=== PATIENT | female | born 1970 | race Native Hawaiian/Other Pacific Islander ===

== ENCOUNTER 2020-12-10 07:29 | Observation (INO) ==
--- NOTE | 2020-11-15 14:32 | PAT Medication Instructions ---
Medication Instructions Date of Service November 15, 2020 Home Medications citalopram 10 mg tablet 10 mg PO QAM phentermine 37.5 mg capsule 37.5 mg PO QAM tramadol 50 mg tablet 50 mg PO Q6H PRN aspirin 81 mg tablet 81 mg PO QAM Take morning of surgery With a small sip of water, OTHERWISE NOTHING TO EAT OR DRINK AFTER MIDNIGHT: citalopram 10 mg tablet 10 mg PO QAM tramadol 50 mg tablet 50 mg PO Q6H PRN (okay to take up to 4 hours prior to surgery if needed) aspirin 81 mg tablet 81 mg PO QAM (continue as normal unless told otherwise by surgeon) Other Notes STOP 5 DAYS BEFORE SURGERY: phentermine 37.5 mg capsule 37.5 mg PO QAM If you have any questions please call us at [phone] or [phone] or or [phone]
--- NOTE | 2020-11-20 13:20 | Anesthesiology Consultation ---
Date of Service November 20, 2020 Assessment & Plan (1) Encounter for pre-operative examination: - COVID screening: Per assessment on 11/20: Travel screen negative, no known COVID-19 positive contacts or current COVID-19 related symptoms. Patient vaccin ated. Surgeon arranging preop COVID testing. Awaiting results. - ASA instructions: per surgeon/prescriber - Check test AM DOS - Hx spinal headache: after remote c/s SAB Chart Review Chart Review: Acceptable Risk for Surgery and Patient seen in Pre Admission Testing Teaching & Discussion Pre-Anesthesia Teaching/Discussion Notes: Instructed NPO after midnight before surgery,except medications with 15 cc of water. Medication instructions provided according to the PAT guidelines. History Surgery Operation Date: 12/10/20 10:40 Proposed Procedures p Right Total Knee Arthroplasty - Ezequiel Alcala DO Height/Weight Height: 5 ft 4 in Weight: 116 kg Allergies Allergy/AdvReac Type Severity Reaction Status Date / Time No Known Allergies Allergy Verified 11/12/20 07:22 Medications Home Medications Medication Instructions Recorded Confirmed Last Taken citalopram 10 mg tablet 10 mg PO QAM 11/02/20 11/09/20 Unknown phentermine 37.5 mg capsule 37.5 mg PO QAM 11/02/20 11/09/20 Unknown tramadol 50 mg tablet 50 mg PO Q6H PRN tab 11/02/20 11/09/20 Unknown aspirin 81 mg tablet 81 mg PO QAM 11/09/20 11/09/20 Unknown Past Medical History Medical History Degenerative disc disease Factor V deficiency Dx after work done stillborn child (2003)- umbilical cord at time showed abnormalities which led to testing/diagnosis > started on ASA daily History of anemia No hx blood transfusions History of COVID-19 Dx 06/2020 > no residual issues History of kidney stones Hx of sleep apnea Remote 15+ years ago dx prior to gastric bypass, snoring resolved since No formal retest Morbid obesity Osteoarthritis Exercise / Class Metabolic Activity III < 4 Walking/Shop/Light housework Past Family History Family History Grandmother (Maternal) Family history of diabetes mellitus Grandfather (Paternal) Family hx of colon cancer Past Surgical History Surgical History History of section x3 History of cholecystectomy History of colonoscopy History of endometrial ablation History of herniorrhaphy x3 History of lithotripsy History of tooth extraction Hx of gastric bypass Past Anesthesia History Other (Hx spinal headache- after remote c/s SAB) Father- O2 sats dropped with hip surgery. No similar issues for patient. History of PONV No Hx of PONV and No Hx of Motion Sickness Social History Smoking Status: Never smoker Do You Dip or Chew Tobacco: No Hx Alcohol Use: No substance use type: does not use Review of Systems Patient denies chest pain, shortness of breath, fever, chills, cough, wheezing, palpitations. Physical Exam Vital Signs VITALS BP 121/87 P 85 TEMP 98.5 SP02 97%RA RESP 16 PHYSICAL Full cervical extension range of motion. Full TMJ range of motion. TMD 4 finger breaths Mallampati Score 1 Dentition: several missing (molars), + crown (molar) Lungs: clear throughout to auscultation Cardiac: regular rate and rhythm, no murmurs noted Spine: normal Carotid arteries: negative bruit Extremities: non-pitting LE edema Thick neck Lab Results Anesthesia Preop Results Results Anesthesia Widget: WBC 4.48 K/uL (4.8-10.8) L 11/20/20 Hgb 13.0 g/dL (12.0-16.0) 11/20/20 Hct 38.4 % (37-47) 11/20/20 Plt 256 K/uL (130-400) 11/20/20 Na 141 mmol/L (136-145) 11/20/20 K 3.6 mmol/L (3.5-5.1) 11/20/20 Cl 109 mmol/L (98-107) H 11/20/20 CO2 25 mmol/L (21-32) 11/20/20 BUN 14 mg/dl (7-18) 11/20/20 Creat 0.43 mg/dl (0.6-1.2) L 11/20/20 Glucose Level 88 mg/dl (70-99) 11/20/20 PT 10.9 Seconds (9.0-12.0) 11/20/20 PTT 25.1 Seconds (21.0-31.0) 11/20/20 INR 1.1 (0.9-1.1) 11/20/20 Blood Type O Positive 11/20/20 Antibody Screen NEGATIVE 11/20/20 Testing Electrocardiogram Date: 11/20/20 NSR at 79bpm. Normal ECG. unconfirmed report. Chest X-Ray Date: 11/20/20 Findings: + NAD
--- NOTE | 2020-12-07 06:02 | History & Physical Report ---
Date of Service December 07, 2020 Assessment & Plan (1) Primary osteoarthritis of right knee: We will proceed with a right total knee arthroplasty. Postoperatively she will be started on Xarelto for DVT prophylaxis. She will be kept overnight in the hospital for postoperative medical management. She plans to use [employer] upon discharge. History of Present Illness Chief Complaint: Osteoarthritis of the right knee. Primary Care Provider: Ellis Kiser PA-C Nesha is a pleasant 50-year-old female whose been dealing with a several year history of worsening bilateral knee pain. Her right knee is worse than her left. She has trouble walking long distances or going up and down stairs. She has failed extensive conservative treatment including multiple injections and viscosupplementation. X-rays show advanced osteoarthritis. After failing conservative treatment, she has elected to proceed with a right total knee arthroplasty.. Allergies Allergy/AdvReac Type Severity Reaction Status Date / Time No Known Allergies Allergy Verified 11/12/20 07:22 Home Medications Medication Instructions Recorded Confirmed Type citalopram 10 mg tablet 10 mg PO QAM 11/02/20 11/09/20 History phentermine 37.5 mg capsule 37.5 mg PO QAM 11/02/20 11/09/20 History tramadol 50 mg tablet 50 mg PO Q6H PRN tab 11/02/20 11/09/20 History aspirin 81 mg tablet 81 mg PO QAM 11/09/20 11/09/20 History Past Med/Surg History Medical History Degenerative disc disease Factor V deficiency Dx after work done stillborn child (2003)- umbilical cord at time showed abnormalities which led to testing/diagnosis > started on ASA daily History of anemia No hx blood transfusions History of COVID-19 Dx 06/2020 > no residual issues History of kidney stones Hx of sleep apnea Remote 15+ years ago dx prior to gastric bypass, snoring resolved since No formal retest Morbid obesity Osteoarthritis Surgical History History of section x3 History of cholecystectomy History of colonoscopy History of endometrial ablation History of herniorrhaphy x3 History of lithotripsy History of tooth extraction Hx of gastric bypass Family History Grandmother (Maternal) Family history of diabetes mellitus Grandfather (Paternal) Family hx of colon cancer Social History Smoking Status: Never smoker Second Hand Exposure: No; Hx Alcohol Use: No Preferred Language: Luxembour[place] Game Author Required: No Beliefs That Will Affect Care: None Current Living Situation: Family Feels Safe at Home: Yes Assistive Devices: None Review of Systems All systems reviewed & are unremarkable except as noted in HPI & below. Physical Exam On physical examination of the right knee, she does a varus deformity. She has tenderness palpation of the distal medial femoral condyle and over the medial joint line.. Constitutional WD/WN, vitals as above Eyes PERRL, conjunctivae normal, anicteric sclerae ENMT external ear and nose normal, oropharynx normal Neck trachea midline, no thyromegaly Respiratory normal respiratory effort Cardiovascular RRR, no murmur, no edema Gastrointestinal (Abdomen) normal bowel sounds, soft, nontender, no hepatosplenomegaly Psychiatric A+Ox3, euthymic affect Results & Data Results & Data Laboratory Results . Diagnostic Findings X-rays of the right knee show advanced osteoarthritis with joint space narrowing, osteophyte formation, and [id number] articulation. PG Care Time/CCT Total # of Minutes Spent Total Time Spent with Patient: Total time spent is greater than 50% in coordination of care (as documented) at patient's floor/unit and/or counseling patient: Coding Level of Care Code None Diagnoses Primary osteoarthritis of right knee M17.11
[~2020-12-10 07:29] MED LIST: ACETAMINOPHEN 500 MG TAB PO SCH; BUPIVACAINE 0.5 % 5 MG/1 ML PF 10ML VIAL ONE; FAMOTIDINE 20 MG TAB PO SCH; GABAPENTIN 900 MG DOSE PO SCH; LR 500ML BOLUS, THEN 15ML/HR IV SCH; LR 60ML/HR IV SCH; ROPIVACAINE 0.5% HCL/PF 150 MG, BUPIVACAINE 0.75% MPF 20 ML, EPINEPHrine 30MG/30ML (OR ... INFIL SCH; TRANEXAMIC ACID 1,000 MG **IV Intra-op IV SCH; TRANEXAMIC ACID 1,000 MG **IV Pre-op IV SCH; ceFAZolin 2000MG 2,000 MG/15 ML SYR IV SCH; dexAMETHasone 4 MG TAB PO SCH
--- NOTE | 2020-12-10 08:17 | History & Physical Bridge Note ---
Date of Service December 10, 2020 History & Physical Bridge Note I have examined the patient, reviewed the History & Physical and in the interval since the performance of the History & Physical I have noted the following changes of clinical significance: no changes noted
[2020-12-10] MEDS ORDERED: DEXAMETHASONE SOD INJ 4 MG/ML VIAL ONE (08:30)
[2020-12-10] MEDS ORDERED: ONDANSETRON INJ 2 MG/ML 2 ML VIAL ONE (08:30)
[2020-12-10] MEDS ORDERED: PROPOFOL IV EMULSION 10 MG/ML 20 ML VIAL IV ONE ×2 (08:30→12:10)
[2020-12-10] MEDS ORDERED: fentaNYL citrate 100 MCG/2 ML VIAL ONE ×2 (08:31→09:49)
[2020-12-10] MEDS ORDERED: MIDAZOLAM HCL 1 MG/ML 2ML VIAL ONE ×2 (09:48)
[2020-12-10] MEDS ORDERED: ATROPINE SULFATE 0.1 MG/ML 10ML SYR IV PRN (10:12)
[2020-12-10] MEDS ORDERED: ePHEDrine sulfate 50 MG/ML AMP IV PRN (10:12)
[2020-12-10] MEDS ORDERED: fentaNYL citrate 100 MCG/2 ML VIAL IV PRN (10:12)
[2020-12-10] MEDS ORDERED: ONDANSETRON INJ 2 MG/ML 2 ML VIAL IV PRN ×2 (10:12→13:32)
[2020-12-10] MEDS ORDERED: ORTHO JOINT ANESTHETIC ONE (10:46)
[2020-12-10] MEDS ORDERED: LIDOCAINE 2% 2 ML VIAL/AMP(20MG/ML) INFIL ONE (12:10)
--- NOTE | 2020-12-10 12:16 | Operative Report ---
PG Post Operative Report Pre & Post Diagnosis Operation Date: 12/10/20 10:00 Pre-Op Diagnosis: Primary osteoarthritis of right knee Post-Op Diagnosis: Primary osteoarthritis of right knee I identified the patient and participated in the time-out.: Yes Procedure Operation Date: 12/10/20 10:00 Actual Procedures p Right Total Knee Arthroplasty(Right) with a 22 modifier for increased difficulty due to a BMI of 43.0- Ezequiel Alcala DO Surgeon Ezequiel Alcala DO [employer] Supervisor Ezequiel Angulo PAC Estimated Blood Loss 10 Findings Consistent with Post-Op Diagnosis Specimens Right femoral and tibial bone Complications none Disposition Disposition: Recovery Room Indications Nesha is a pleasant 50-year-old female who is been dealing with chronic worsening right knee pain. X-rays clinical examination have been diagnostic for advanced osteoarthritis of the right knee. After failing conservative treatment, she elected proceed with a right total knee arthroplasty. Description of Procedure Modifier 22: This case took increased time was increased difficulty due to morbid obesity. She had a BMI of 43.0. This caused increased time for retraction and dissection as well as increased time with closure. The case took about 50% longer than a standard knee replacement. Implants used: I used a Flavio Persona total knee arthroplasty system with a size 9 narrow femur, E tibia, 32 patella, and a size 11 medial congruent polyethylene bearing. All components were cemented in place with Biomet cement. Nesha arrived [facility] for the above procedure. She was seen in the preoperative holding area and the operative extremity was identified and signed. She was given a preoperative antibiotic, TXA, a spinal anesthetic and an adductor nerve block. She was taken back to the operating room and laid on the table in supine position. She was given basic sedation. The operative knee was then prepped and draped in sterile fashion. A timeout was done, and the patient and the operative extremity was properly identified. A midline incision was made directly over the patella. Dissection was taken down to the extensor mechanism. A subvastus arthrotomy was used. The medial retinaculum was released and the fat pad was mostly excised. The knee was flexed and the ACL, PCL, and meniscus were removed. A drill was sent down the center of the femoral canal followed by an intramedullary lara. Off that lara a distal femoral cutting block was placed. 9 mm was resected off the distal femur at 5 of valgus. A posterior referencing AP sizing guide was then placed on the distal femur. The femur measured to be a size 9 narrow. 2 drill holes were placed in 3 of external rotation. A 4-in-1 cutting block was then impacted into place. Anterior, posterior, and chamfer cuts were then made. The proximal tibia was then exposed. An external tibial alignment guide was placed. A tibial cut guide was then anchored in place and the proximal tibia was then resected. The posterior aspect of the knee was then opened up and any additional meniscus fragments and osteophytes were removed. The tibia measured to be a size E. The tibial plate was then placed in the appropriate rotation and the tibia was drilled and punched. Trial components were then placed. I used a size 11 medial congruent polyethylene insert. The knee was brought through a full range of motion and felt to be stable. The peg holes for the femoral component were then drilled. The patella was then everted and 9 mm was resected off the posterior aspect of the patella. The patella measured to be a size 32. 3 peg holes were then drilled. A trial patella was placed. The knee was once again brought through a full range of motion and felt to be stable. Trial components were then removed. The surrounding soft tissues were injected with 100 cc of an orthopedic pain control cocktail. All components were then cemented into place with Biomet cement. The final polyethylene insert was then snapped into place. Once cement was dry the tourniquet was deflated. Hemostasis was obtained. A dilute betadyne lavage was then done for 3 minutes. The joint was then irrigated with normal saline solution. The subvastus arthrotomy was then closed with #1 Vicryl suture. The skin was closed with 2-0 Vicryl, 3-0V lock suture, and elisabeth. A soft compressive dressing was placed. She was then transferred to a hospital bed and taken to the postanesthesia care unit in stable condition. She tolerated the procedure well. Ezequiel Angulo PA-C, was present for the entire procedure. He was critical for patient positioning, prepping, draping, retraction exposure, wound closure and application of sterile dressing. I attest to the content of the Intraoperative Record and any orders documented therein. Any exceptions are noted below.
[2020-12-10] MEDS ORDERED: PHENYLEPHRINE 100MCG/ML 5ML SYR ONE (12:21)
--- NOTE | 2020-12-10 13:31 | XRay Report ---
XR knee RT 1 or 2V routine HISTORY: 50 years-old Female Surgical Post Op right knee total joint arthroplasty COMPARISON: Knee radiographs 11/02/2020 TECHNIQUE: 2 views of the right knee FINDINGS: Right knee total joint arthroplasty with patellar resurfacing. Anterior midline skin elisabeth are note d along with expected postoperative soft tissue swelling and deep tissue air. No acute fracture, kellee lignment, or unexpected opaque foreign body. IMPRESSION: Right knee total joint arthroplasty and patella resurfacing with expected postoperative c hanges. ACT 112: Negative or not required by law. The above report was generated using voice recognition software. It may contain grammatical, syntax o r spelling errors. Electronically signed by: Abhay Swenson M.D. 12/10/2020 1:30 PM
[2020-12-10] MEDS ORDERED: bisacodyL 10 MG SUPP PR PRN (13:32)
[2020-12-10] MEDS ORDERED: METOCLOPRAMIDE HCL INJ 5 MG/ML 2 ML VIAL IV PRN (13:32)
[2020-12-10] MEDS ORDERED: HYDROmorphone INJ 0.5 MG/0.5 ML SYR IV PRN (13:32)
[2020-12-10] MEDS ORDERED: MAGNESIUM HYDROXIDE SUSP 30 ML UDC PO PRN (13:32)
[2020-12-10] MEDS ORDERED: NALOXONE HCL 0.4 MG/1 ML VIAL/CARP IV PRN (13:32)
--- NOTE | 2020-12-10 13:43 | Anesthesiology Progress Note ---
Date of Service December 10, 2020 Anesthesia Post Procedure Vital Signs Vital Signs: Temp Pulse Pulse Resp BP Pulse Ox 12/10/20 13:10 97.7 F 81 13 124/74 97 12/10/20 13:00 75 20 122/76 100 12/10/20 12:50 75 12 133/68 100 12/10/20 12:40 98.8 F 85 16 128/70 99 12/10/20 08:06 99.5 F 78 20 152/79 H 99 Pain Intensity Back: Pain Intensity: 4 Transfer of Care Handoff Completed per policy Notes Mental Status: alert / awake / arousable and participated in evaluation Patient Amnestic to Procedure: Yes Nausea / Vomiting: adequately controlled Pain: adequately controlled Airway Patency, RR, SpO2: stable & adequate BP & HR: stable & adequate Hydration State: stable & adequate Neuraxial Anesthesia: was administered and sensory block is resolving Anesthetic Complications: no major complications apparent and Pt Satisfied with anesthetic care
[2020-12-10] MEDS: SODIUM CHLORIDE 0.9% 1000ML 1,000 ML IV SCH (13:45)
[2020-12-10] MEDS: ACETAMINOPHEN 500 MG TAB PO SCH ×2 (15:35→20:56)
[2020-12-10] MEDS: KETOROLAC 30 MG/ML VIAL IV SCH ×2 (15:35→20:55)
[2020-12-10] MEDS: oxyCODONE HCL IR 5 MG TAB (IMMEDIATE RELEASE) PO PRN (16:59)
[2020-12-10] MEDS: ceFAZolin 2000MG 2,000 MG/15 ML SYR IV SCH (18:43)
[2020-12-10] MEDS: DOCUSATE SODIUM 100 MG CAP PO SCH (20:55)
[2020-12-10] MEDS ORDERED: SENNA 8.6 MG TAB PO SCH (21:00)
[2020-12-11] MEDS: oxyCODONE HCL IR 5 MG TAB (IMMEDIATE RELEASE) PO PRN ×3 (00:15→10:53)
[2020-12-11] MEDS: SODIUM CHLORIDE 0.9% 1000ML 1,000 ML IV SCH (01:07)
[2020-12-11] MEDS: KETOROLAC 30 MG/ML VIAL IV SCH ×2 (02:29→09:02)
[2020-12-11] MEDS: ceFAZolin 2000MG 2,000 MG/15 ML SYR IV SCH (02:29)
[2020-12-11] MEDS: ACETAMINOPHEN 500 MG TAB PO SCH (06:02)
--- NOTE | 2020-12-11 06:41 | Orthopedic Progress Note ---
Date of Service December 11, 2020 Assessment & Plan (1) Status post right knee replacement: Overall she is doing very well. She is not having much pain in the right knee. She is on Xarelto for DVT prophylaxis. She will be seen by physical therapy today for ambulation and range of motion exercises. Her dressing can be changed after physical therapy but before discharge. She can be discharged home later today. She will follow-up with orthopedics in 2 weeks. Ana Jeffries was seen and examined at bedside this morning. Overall she doing very well. She is not having much pain in the right knee. She has been up and ambulating to the bathroom. She has no complaints.. Review of Systems All systems reviewed & are unremarkable except as noted in HPI & below. Physical Exam On physical examination the right knee, the dressing is clean and dry. She has active dorsiflexion and plantarflexion of her right ankle. Sensation is intact throughout.. Results & Data Results & Data Laboratory Results . Diagnostic Findings Postoperative x-rays of the right knee show the prosthesis to be in anatomic alignment without any evidence of fracture, dislocation, or loosening. PG Care Time/CCT Total # of Minutes Spent Total Time Spent with Patient: Total time spent is greater than 50% in coordination of care (as documented) at patient's floor/unit and/or counseling patient: Coding Level of Care Code 33506 Post Operative Follow-Up Diagnoses Status post right knee replacement Z96.651
--- NOTE | 2020-12-11 06:42 | Discharge Summary ---
Date of Service December 11, 2020 Admission HPI (Per Admitting) Nesha is a pleasant 50-year-old female whose been dealing with a several year history of worsening bilateral knee pain. Her right knee is worse than her left. She has trouble walking long distances or going up and down stairs. She has failed extensive conservative treatment including multiple injections and viscosupplementation. X-rays show advanced osteoarthritis. After failing conservative treatment, she has elected to proceed with a right total knee arthroplasty.. Admission Exam (Per Admitting) On physical examination of the right knee, she does a varus deformity. She has tenderness palpation of the distal medial femoral condyle and over the medial joint line.. Principal Diagnosis Same as "Discharge Diagnosis" noted below under Discharge Instructions. Discharge Exam On physical examination the right knee, the dressing is clean and dry. She has active dorsiflexion and plantarflexion of her right ankle. Sensation is intact throughout.. Discharge Data Procedures Performed Operation Date: 12/10/20 10:00 Actual Procedures p Right Total Knee Arthroplasty(Right) - Ezequiel Alcala DO Ordered Studies 12/10/20 05:00 US - OR guided needle placemen Routine Hospital Course (1) Status post right knee replacement: On December 10, 2020 Nesha arrived at [facility] and underwent a right knee replacement without complication. She had a spinal anesthetic. Postoperatively she was started on Xarelto for DVT prophylaxis and transferred to the general orthopedic floors. Her hospital course was uneventful. On postop day #1 her vital signs were stable and her pain was well controlled. She was able to participate well with physical therapy doing ambulation and range of motion exercises. She was then discharged home. She will follow-up with orthopedics in 2 weeks. PG Care Time/CCT Total # of Minutes Spent Total Time Spent with Patient: Total time spent is greater than 50% in coordination of care (as documented) at patient's floor/unit and/or counseling patient: Discharge Plan Discharge Items Patient Disposition: Home - Home Health Services Reason For Visit: DJD Right Knee Discharge Diagnosis: Right knee replacement Activity: As commented below Non-emergency contact: Surgeon Call non-emergency contact if: your wound has increased redness and your wound has increased drainage Follow-up/Referrals: Ellis Kiser PA-C [Primary Care Provider] - Diet: Regular Addtl Attending Provider Instructions: Activity and Therapy Recommendations: * If you are using [facility] then therapy will be provided at your home until they feel you have accomplished all of your goals. * If you are using [facility] then Physical Therapy will be provided until they feel you are ready to start Outpatient Physical Therapy. * If you are not using home therapy then Outpatient Physical Therapy should start about 3-5 days from your day of surgery. Therapy will last about 6-10 weeks * It is important not to put a pillow under your knee when you are relaxing or sleeping. It is just as important to make sure you are getting your knee perfectly straight as it is to regain your knee bend. * You were shown a series of exercises in the hospital. Do these exercises three times each day including the exercises you were shown in physical therapy. * Get up and walk several times each day. For the first four weeks, try not to stand or walk for more than one hour at a time. If you do stand or walk for more than one hour, you will not hurt anything, but your leg will likely swell. * As you feel comfortable, you may change from the walker or crutches to a cane and then to independent walking. Medications: * Narcotic You will likely be sent home from the hospital with a prescription for the narcotic pain medication that worked best throughout your stay. * Aspirin Most patients will be required to take Aspirin 81mg twice a day for 6 weeks after surgery. This is obtained [id number] and a prescription is not necessary. * Other medications may be prescribed for specific circumstances. If you have any questions, please call the office at . * Resume previous home medications unless otherwise instructed TEDs/Elastic Stockings: The white elastic stockings help limit swelling and prevent blood clots from forming in your legs.~ The more you wear them, the more they work. Wear them for six weeks. Dressing Care: The dressing can be changed after physical therapy on postop day #1. Daily dry dressing changes for a few days, especially if the incision is still draining some. If the incision is not draining then you may leave the elisabeth open to air. If there is a little bit of drainage or if the elisabeth are getting stuck on your clothing then cover the incision with a dry dressing. The elisabeth will be removed at your 2 week follow-up appointment. Showering: You may shower 5 days from the day of surgery as long as the incision is no longer draining. You may shower with the elisabeth exposed. Let soapy water run over the elisabeth and pat them dry. Do not scrub or soak the incision. Things To Watch For: * Drainage from the incision site that occurs more than one week after your surgery. * Increased redness at the incision site. * Fever above 102 degrees Fahrenheit. * Unusual chest pain or shortness of breath. * Call [facility] at with any of the above problems Follow-Up Visit: Follow-up with Dr. Alcala's PA (Ezequiel Angulo) 2-3 weeks after your day of surgery. He will remove your elisabeth and answer any questions. If you have any additional questions or concerns, Dr Alcala is usually in the office at the same time and will be available An appointment was probably scheduled when you signed-up for surgery in the office. If you have any questions call Office Instructions: More detailed instructions as well as Frequently Asked Questions were provided in a folder by our office when you signed-up for surgery. Please review these instructions when you get home. If you have any further questions or concerns, please feel free to call the office at [phone] Pending Studies at Discharge: No Stand-Alone Forms: My [facility] Medications and DC Order Prescriptions: New oxycodone 5 mg Tablet 5 mg PO Q4H PRN (Reason: pain) Qty: 60 RF: 0 Xarelto 10 mg Tablet 10 mg PO DAILY Qty: 10 RF: 0 Continued citalopram 10 mg tablet 10 mg PO QAM RF: 0 tramadol 50 mg tablet 50 mg PO Q6H PRN (Reason: Pain) RF: 0 phentermine 37.5 mg capsule 37.5 mg PO QAM RF: 0 Discontinued aspirin 81 mg Tablet 81 mg PO QAM RF: 0 Discharge Orders: Discharge Order (Routine); Ordered 12/11/20 Ordered By: Ezequiel Alcala Admission Data Admit Date/Time: 12/10/20 12:44 Attending Provider: Ezequiel Alcala Admit Provider: Ezequiel Alcala Primary Care Provider: Ellis Kiser
[2020-12-11] MEDS ORDERED: dexAMETHasone 4 MG TAB PO SCH (08:00)
[2020-12-11] MEDS ORDERED: CITALOPRAM 20 MG TAB PO SCH (09:00)
[2020-12-11] MEDS ORDERED: MULTIVITAMIN TAB PO SCH (09:00)
[2020-12-11] MEDS ORDERED: ASPIRIN 81 MG ECTAB PO SCH (09:00)
[2020-12-11] MEDS ORDERED: RIVAROXABAN 10 MG TABLET PO SCH (09:00)
[2020-12-11] MEDS: DOCUSATE SODIUM 100 MG CAP PO SCH (09:01)
== END 2020-12-11 11:46 | disposition home health service (06) ==
LOC: ASU 07:29 → 3E 07:29 → MERGE 10:40